=== PATIENT | female | born 1990 | race Caucasian/White ===

== ENCOUNTER 2017-05-19 16:35 | Emergency (ER) | payer OTHER ==
[~2017-05-19] VITALS: Ht 154.9 cm; Wt 63.5 kg
[~2017-05-19 16:35] MED LIST: AMBIEN 5 MG TABL5 MG; ANTIVERT25 MG PO; APAP500; AUGMENTIN 875875 MG PO; BACTRIM DS TAB1 EACH PO; BENADRYL25 MG PO; COLACE 100 MG100 MG; COLACE100 MG PO; DOC-Q-LACE100 MG PO; FEOSOL325 M1 PO; FLAGYL500 MG; HYDROCODONE-APA1 TA1 PO; IBUPROFEN 600600 M1 PO; IRON325; IRON325 PO; LANOLIN56 GM; LIDODERM 5%1 PATC1 TRANSDERM; MEDROLDOSEPACK PO; NORCO 5-325 TA1 EACH PO; ONDANSETRON HCL4 M2 PO; PAXIL10 MG PO; PHENERGAN 25 MG25 M1 PO; PRENATAL; PYRIDIUM200 MG PO; TRAMADOL 50 MG50 MG PO; TRINATE TABLET1 TAB PO; ULTRAM 50MG TAB50 MG PO; UNISOM SLEEP AI25 MG PO
[2017-05-19 16:43] VITALS: BP 117/63
[2017-05-19] MEDS ORDERED: BACTRIM DS TAB1 EACH PO ×2 (16:59→17:01)
[2017-05-19] MEDS ORDERED: MOBIC15 MG PO (17:00)
[2017-05-20] MEDS ORDERED: MOBIC15 MG PO (20:41)
[2017-09-03] MEDS ORDERED: MOBIC15 MG PO (23:19)
[2017-09-03] MEDS ORDERED: ULTRAM 50MG TAB50 MG PO (23:20)
[2017-12-13] MEDS ORDERED: ALEVE220 MG PO (19:27)
== END 2017-05-19 17:14 | disposition home or self-care (01) ==
LOC: ER 16:35
DX: L02.211 Cutaneous abscess of abdominal wall (principal); J45.909 Unspecified asthma, uncomplicated; Z88.5 Allergy status to narcotic agent; Z88.6 Allergy status to analgesic agent; Z87.891 Personal history of nicotine dependence

== ENCOUNTER 2017-05-20 16:31 | Emergency (ER) | payer OTHER ==
[~2017-05-20] VITALS: Ht 154.9 cm; Wt 65.8 kg
[~2017-05-20 16:31] MED LIST changes: +MOBIC15 MG PO
[2017-05-20 17:38] LABS: HEMATOCRIT 36.1 % (37.0-47.0); HEMOGLOBIN 11.5 gm/dL (12.0-15.0); MCH 22.7 pg (26.0-34.0); MCHC 31.8 g/dL (28.0-37.0); MCV 71.2 fL (80.0-100.0); RBC 5.06 mil/uL (4.20-5.00); RDW 15.6 % (10.5-14.5)
[2017-05-20 17:45] LABS: CALCIUM 9.5 mg/dL (8.5-10.1); CREATININE 0.7 mg/dL (0.6-1.0); POTASSIUM 3.2 mmol/L (3.5-5.1)
[2017-05-20] MEDS ORDERED: MOBIC15 MG PO (20:41)
[2017-05-20 21:08] VITALS: BP 118/76
[2017-09-03] MEDS ORDERED: MOBIC15 MG PO (23:19)
[2017-09-03] MEDS ORDERED: ULTRAM 50MG TAB50 MG PO (23:20)
[2017-12-13] MEDS ORDERED: ALEVE220 MG PO (19:27)
== END 2017-05-20 21:08 | disposition home or self-care (01) ==
LOC: ER 16:31
PROVIDERS: Emergency Medicine
DX: S01.112A Laceration without foreign body of left eyelid and periocular area, initial encounter (principal); J45.909 Unspecified asthma, uncomplicated; Z88.5 Allergy status to narcotic agent; Z88.6 Allergy status to analgesic agent; Z87.891 Personal history of nicotine dependence; Y04.8XXA Assault by other bodily force, initial encounter; Y93.89 Activity, other specified; Y92.89 Other specified places as the place of occurrence of the external cause; Y99.8 Other external cause status

== ENCOUNTER 2017-05-26 17:17 | Emergency (ER) | payer OTHER ==
[~2017-05-26] VITALS: Ht 154.9 cm; Wt 65.8 kg
[2017-05-26 18:42] VITALS: BP 112/75
[2017-09-03] MEDS ORDERED: MOBIC15 MG PO (23:19)
[2017-09-03] MEDS ORDERED: ULTRAM 50MG TAB50 MG PO (23:20)
[2017-12-13] MEDS ORDERED: ALEVE220 MG PO (19:27)
== END 2017-05-26 18:26 | disposition home or self-care (01) ==
LOC: ER 17:17
DX: S01.112D Laceration without foreign body of left eyelid and periocular area, subsequent encounter (principal); J45.909 Unspecified asthma, uncomplicated; Z88.6 Allergy status to analgesic agent; Z88.5 Allergy status to narcotic agent; Z87.891 Personal history of nicotine dependence; X58.XXXD Exposure to other specified factors, subsequent encounter

== ENCOUNTER 2018-12-09 18:22 | Emergency (ER) | payer OTHER ==
[~2018-12-09] VITALS: Ht 154.9 cm; Wt 74.4 kg
[~2018-12-09 18:22] MED LIST changes: +ALEVE220 MG PO
[2018-12-09] MEDS ORDERED: SYMBICORT160 MCG/4. INH (18:38)
[2018-12-09] MEDS ORDERED: VENTOLIN HFA 1818 GM INH (20:07)
[2018-12-09 20:27] VITALS: BP 140/75
== END 2018-12-09 20:28 | disposition home or self-care (01) ==
LOC: ER 18:22
DX: J45.909 Unspecified asthma, uncomplicated (principal); F17.210 Nicotine dependence, cigarettes, uncomplicated; Z88.6 Allergy status to analgesic agent; Z88.5 Allergy status to narcotic agent; Z98.890 Other specified postprocedural states